=== PATIENT | male | born 1990 | race Caucasian/White ===

== ENCOUNTER 2019-11-07 12:49 | Outpatient (CLI) | payer OTHER ==
--- NOTE | 2019-11-07 14:05 | MRI ---
MRI RIGHT SHOULDER WITHOUT CONTRAST: 11/07/19 INDICATION: History of radicular pain of the right upper extremity with numbness in the right arm. COMPARISON: Right shoulder radiograph dated 06/21/19. FINDINGS: The rotator cuff is intact. There is mild tendinosis of the supraspinatus. There is a small amount of fluid seen within the subacromial, subdeltoid space. Biceps tendon is located. The biceps anchor com plex appears intact. The inferior glenohumeral labral ligamentous complex appears intact. Glenohumera l articular surface is normal appearing. No muscular atrophy is evident. The AC joint is within luisito l limits for this type II acromion. No os acromiale is evident. No enlarged lymph nodes are present. IMPRESSION: 1. Mild supraspinatus tendinosis. 2. Small amount of fluid in the subacromial, subdeltoid space may reflect mild bursitis. POS: [facility]
--- NOTE | 2019-11-07 14:42 | MRI ---
MRI of thecervical spine with and without contrast: 11/07/2019 COMPARISON:None available HISTORY:Right arm numbness, neck stiffness TECHNIQUE: Multiplanar multisequence MR imaging of thecervical spine with and without contrast Findings:The sagittal STIR imaging demonstrates no focal area of osseous marrow edema. Cervical verte bral body height and alignment appears within normal limits. No prevertebral soft tissue swelling is seen. C2-3: Unremarkable C3-4: Unremarkable C4-5: Unremarkable C5-6: There is disc space narrowing with disc bulge and a small superimposed central/right paracentra l disc protrusion partially effacing the ventral thecal sac and leading to a mild degree of central canal stenosis. No significant neural foraminal stenosis. C6-7: Unremarkable C7-T1: Unremarkable No focal area of abnormal signal intensity is identified within the cervical cord. The postcontrast imaging demonstrates no abnormal enhancement involving the contents of the thecal sa c, the imaged intervertebral discs, or the imaged osseous structures. 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
[2019-11-07] MEDS ORDERED: Magnevist 469MG/ML 20 ML VIAL ONE (16:30)
== END 2019-11-07 12:50 | disposition home or self-care (01) ==
LOC: BICMRI 12:49
PROVIDERS: ATTEND Family Medicine
DX: S42.114A Nondisplaced fracture of body of scapula, right shoulder, initial encounter for closed fracture (principal); M79.2 Neuralgia and neuritis, unspecified; R20.0 Anesthesia of skin; M50.322 Other cervical disc degeneration at C5-C6 level
CPT/HCPCS: 72156; A9579